=== PATIENT | female | born 1995 | race Caucasian/White ===

== ENCOUNTER 2017-04-27 12:35 | Emergency (ER) | payer OTHER ==
[~2017-04-27] VITALS: Ht 162.6 cm; Wt 74.8 kg
[~2017-04-27 12:35] MED LIST: FLEXERIL10 MG PO; TRAMADOL50 MG PO
--- NOTE | 2017-04-27 14:01 | ED GENERAL ADULT ---
History of Present Illness General Chief Complaint: Abdominal Pain/Flank Pain Stated Complaint: PT IS HERE FOR ABDOMINAL Source: patient, family Exam Limitations: no limitations Vital Signs & Intake/Output Vital Signs & Intake/Output Vital Signs Date Time Temp Pulse Resp B/P B/P Pulse O2 O2 Flow FiO2 Mean Ox Delivery Rate 04/27 1617 98.3 70 17 116/60 98 Room Air Room Air 04/27 1446 Room Air 04/27 1238 98.1 94 18 124/61 98 Room Air Allergies Uncoded Allergies: LEAVES (SNEEZE 01/29/15) Reconcile Medications No Known Home Medications Triage Note: 22 Y/O FEMALE C/O DIFFUSE ABDOMINAL PAIN X 6 WEEKS STATES PAIN HAS BECOME MORE CONSTANT SINCE YESTERDAY AND STATES ABDOMEN IS "TWICE ITS NORMAL SIZE". PT REPORTS INTERMITTENT NAUSEA, DENIES VOMITING. DENIES CHANGES IN APPETITE. LAST BM YESTERDAY AND "NORMAL" PER PT. STATES SHE HAS MENSES RIGHT NOW, "IT WAS 2 WEEKS LATE BUT NOW ITS NORMAL". URINE SAMPLE REQUESTED. AFEBRILE Triage Nurses Notes Reviewed? yes Onset: Abrupt Duration: week(s): Timing: recent history Severity: severe No Modifying Factors: none : No Patient currently breastfeeds: No HPI: 22-year-old female presents to emergency department complaining of lower abdominal pain. Patient states that pain started 6 weeks ago and has been intermittent and cramping in nature without radiation. Patient also notes significant swelling to her abdomen that "happened overnight", she did not know if she has had any change in weight. 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 Pain is not associated with eating. Pain occurs for a few hours at a time and is described as severe, and then dissipates. She took Excedrin for her pain last night with no relief of her symptoms. She also has urinary frequency. She denies fevers, chills, changes in bowel movements, diarrhea, constipation, hematochezia, chest pain, dyspnea, changes in diet, vaginal discharge or dysuria , hematuria. She has a history of ruptured appendix in 2009. (MIREYA CHRISTIANSON) Past History Travel History Traveled to [place] past 21 day No Medical History Any Pertinent Medical History? see below for history Neurological: NONE EENT: NONE Cardiovascular: NONE Respiratory: asthma Gastrointestinal: ruptured appendix Hepatic: NONE Renal: NONE Musculoskeletal: NONE Psychiatric: anxiety Endocrine: NONE Blood Disorders: NONE Cancer(s): NONE SEMAPHORE OPERATOR/Reproductive: NONE Surgical History Surgical History: appendectomy, L ELBOW SURGERY Psychosocial History Who do you live with Friend What is your primary language Austrian Tobacco Use: Never used Family History Hx Contributory? No (MIREYA CHRISTIANSON) Review of Systems Review of Systems Constitutional: Reports: see HPI. EENTM: Reports: no symptoms. Respiratory: Reports: no symptoms. Cardiovascular: Reports: no symptoms. GI: Reports: see HPI. Genitourinary: Reports: see HPI. Musculoskeletal: Reports: no symptoms. Skin: Reports: no symptoms. Neurological/Psychological: Reports: no symptoms. Hematologic/Endocrine: Reports: no symptoms. Immunologic/Allergic: Reports: no symptoms. All Other Systems: Reviewed and Negative (MIREYA CHRISTIANSON) Physical Exam Physical Exam General Appearance: well developed/nourished, no apparent distress, alert, awake Head: atraumatic, normal appearance Eyes: Bilateral: normal appearance, EOMI. Ears, Nose, Throat: hearing grossly normal Neck: normal inspection, supple Respiratory: normal breath sounds, no respiratory distress, quiet respiration Cardiovascular: regular rate/rhythm Gastrointestinal: normal bowel sounds, soft, no organomegaly, tenderness in RLQ and LLQ, suprapubic tenderness Back: normal inspection, normal range of motion, no CVA tenderness Extremities: normal inspection, normal range of motion Neurologic/Psych: awake, alert, oriented x 3 Skin: intact, normal color, warm/dry Core Measures ACS in differential dx? No CVA/TIA Diagnosis: No Severe Sepsis Present: No Septic Shock Present: No (MIREYA CHRISTIANSON) Progress Differential Diagnoses I considered the following diagnoses in my evaluation of the patient: [ diverticulitis, diverticulosis, PID, endometriosis, intussauception, SBO, cholecystitis] Plan of Care: Orders Procedure Date/time Status COMPREHENSIVE METABOLIC PANEL 04/27 1351 Complete CBC WITHOUT DIFFERENTIAL 04/27 1351 Complete URINE 04/27 1241 Complete URINALYSIS 04/27 1241 Complete Laboratory Tests 04/27/17 1406: Urine Color STRAW, Urine Clarity CLEAR, Urine pH 6.5, Ur Specific Custer <= 1.005, Urine Protein NEG, Urine Ketones NEG, Urine Nitrite NEG, Urine Bilirubin NEG, Urine Urobilinogen 0.2, Ur Leukocyte Esterase NEG, Ur Microscopic SEDIMENT EXAMINED, Micro UA Comment NEGATIVE MICROSCOPIC, Urine Hemoglobin SMALL H, Urine Glucose NEG, Urine Test NEGATIVE 04/27/17 1403: Anion Gap 8, Estimated GFR > 60, BUN/Creatinine Ratio 11.4, Glucose 85, Calcium 9.5, Total Bilirubin 0.4, AST 17, ALT 30, Alkaline Phosphatase 59, Total Protein 7.2, Albumin 4.2, Globulin 3.0, Albumin/Globulin Ratio 1.4, CBC w Diff NO MAN DIFF REQ, RBC 4.49, MCV 85.3, MCH 28.4, RDW 12.6, MPV 8.0, Gran % 59.5, Lymphocytes % 31.7, Monocytes % 6.4, Eosinophils % 2.3, Basophils % 0.1, Absolute Granulocytes 3.6, Absolute Lymphocytes 1.9, Absolute Monocytes 0.4, Absolute Eosinophils 0.1, Absolute Basophils 0, PUBS MCHC 33.3 Patient is sitting comfortably in stretcher, she is in no acute distress. Her vital signs have remained stable for the duration of the visit. She is non toxic appearing. Her blood work and imaging was discussed with her extensively. CT shows some indistinct tissues in the region of the right adnexa abutting the uterus and dome of the urinary bladder. Possibly endometriosis vs ovarian cysts. Patient was given a copy of her CT and told to follow up with her OBGYN for further work up. She was also given GI referral for addition work up. She is in agreement with the plan of care. She will follow up here with any worsening symptoms or concerns. case discssed with dr amador. (OLE MENDEZ,MIREYA) Diagnostic Imaging: Viewed by Me: Radiology Read. Discussed w/RAD: Radiology Read. Radiology Impression: PATIENT: SOILA HOANG PRESENT AGE: 22 PATIENT ACCOUNT NO: [id number] : 97 LOCATION: [facility] ORDERING PHYSICIAN: MIREYA MENDEZ SERVICE DATE: 04/27/17-8041 EXAM TYPE : CAT - CT ABD & PELVIS W IV CONTRAST EXAMINATION: CT ABDOMEN AND PELVIS WITH CONTRAST CLINICAL INFORMATION: 22-year-old female patient presenting with crampy abdominal pain in the lower abdomen for the past 6 weeks. COMPARISON: CT of the abdomen pelvis dated 04/14/2012. TECHNIQUE: Multidetector volumetric imaging was performed of the abdomen and pelvis before and after the IV administration of 95 mL of Optiray 320 intravenous contrast. Sagittal and coronal reformatted images were obtained on the technologist's workstation. DLP: 32.3 mGy-cm FINDINGS: LOWER CHEST: The visualized lung bases are unremarkable. There is no evidence of a pleural or pericardial effusion. LIVER, GALLBLADDER, AND BILIARY TREE: The liver is normal in size, shape, and attenuation. No focal hepatic lesion or biliary ductal dilatation is present. The gallbladder is unremarkable with no evidence of radiopaque gallstones, gallbladder wall thickening, or obvious pericholecystic inflammatory changes. The hepatic veins and portal veins are patent. PANCREAS: No pancreatic mass, ductal ectasia, inflammatory changes are seen. SPLEEN: The spleen is not enlarged. ADRENAL GLANDS: The adrenal glands are normal in configuration bilaterally. KIDNEYS AND URETERS: The kidneys are normal in size, shape, and attenuation. No hydronephrosis, hydroureter, or calculi seen. No perinephric stranding. GASTROINTESTINAL TRACT: The large and small bowel are normal in caliber and distribution. There is no evidence of significant diverticular disease. The cecum and terminal ileum are well visualized and normal in appearance. The appendix is not identified. There is again suggestion of a ill-defined inflammatory process involving the right adnexa abutting the uterus and dome of the urinary bladder. ABDOMINAL WALL: No significant hernia is appreciated. LYMPH NODES: There is no evidence of mesenteric, retroperitoneal, pelvic, or inguinal adenopathy. VASCULAR: The dominant aorta and iliac arteries are patent and normal caliber. The iliac veins and IVC are patent. PELVIC VISCERA: A tampon is noted in the vagina. The uterus is retroflexed but otherwise normal in appearance. There appears to be some ill- defined cystic structures within the right ovary. OSSEOUS STRUCTURES: The spine is normal in appearance. No suspicious focal osteolytic or osteoblastic changes are appreciated. IMPRESSION: There is again, some indistinct tissues in the region of the right adnexa abutting the uterus and dome of the urinary bladder with possible mild inflammatory changes. These are similar in appearance compared to the CT scan performed April,. There may be multiple cysts in the right ovary some of which may have recently ruptured. The appendix has not been visualized on either CT study but the cecum and terminal ileum are normal in appearance. Clinical correlation is recommended. If indicated, these findings could be evaluated further with pelvic ultrasound. DICTATED BY: VIVIANA TOLLIVER MD DATE/TIME DICTATED:04/27/171507 GROUP THERAPY COUNSELOR:BOBBY DATE/TIME TRANSCRIBED:04/27/171507 CONFIDENTIAL, DO NOT COPY WITHOUT APPROPRIATE AUTHORIZATION. Initial ED EKG: none (MIREYA CHRISTIANSON) Departure Departure Disposition: HOME OR SELF CARE Condition: Stable Clinical Impression Primary Impression: Abdominal pain Referrals: MADELYN DIAZ,HAY MERRITT MD,JENNIFER Ge (PCP/Family) Additional Instructions: Take Tylenol or Motrin as prescribed as needed for pain. Follow up with your OBGYN for further evaluation of possible endometriosis or ovarian cysts. Follow up with GI, Dr. Galicia, call to make an appointment. Return with any worsening symptoms or concerns. Please go over all results of today's visit with your primary care doctor. Contact your primary care doctor to let them know you were here in the emergency room. There may be nonspecific findings which may not be related to your visit today here in the emergency room but may require further evaluation and chronic monitoring by your primary care doctor. If you had a laceration today the chance of foreign body always remains. You should follow-up with your primary care doctor for recheck in 3-5 days for a wound check. If you had an x-ray done there is a chance that a fracture could have been missed on initial read and you should follow-up with your primary care doctor for repeat x-rays if symptoms persist. If your blood pressure was elevated here in the emergency room please have rechecked by her primary care doctor within the next 48 hours by your primary care doctor. If you were prescribed a narcotic here in the emergency room or any type of controlled substances you're not allowed to drive while taking this medication or operate any type of heavy machinery. Narcotics can make you feel lightheaded dizziness nausea and can cause constipation. You may need to bead picker a stool softener. Thank you for choosing [facility] emergency room. Please return to the emergency room immediately if you have any other concerns worsening of symptoms. Departure Forms: Customer Survey General Discharge Information Prescriptions: Current Visit Scripts No Known Home Medications Comments Note written by Melida Latif PA-C under my direct supervision. (MIREYA CHRISTIANSON) PA/SAND TEMPERER Co-Sign Statement Statement: ED Attending supervision documentation- [] I saw and evaluated the patient. I have also reviewed all the pertinent lab results and diagnostic results. I agree with the findings and the plan of care as documented in the PA's/SAND TEMPERER's documentation. [X] I have reviewed the ED Record and agree with the PA's/SAND TEMPERER's documentation. [] Additions or exceptions (if any) to the PAs/SAND TEMPERER's note and plan are summarized below: [] (OBDULIA DIAZ,JASON) Critical Care Note Critical Care Note Critical Care Time: non-applicable (MIREYA CHRISTIANSON)
[2017-04-27 14:08] LABS: ABSOLUTE BASOPHIL COUNT 0 /CUMM (0.0-0.2); ABSOLUTE EOSINOPHIL COUNT 0.1 /CUMM (0.0-0.7); ABSOLUTE GRANULOCYTE CT 3.6 /CUMM (1.4-6.5); ABSOLUTE LYMPH COUNT 1.9 /CUMM (1.2-3.4); ABSOLUTE MONOCYTE COUNT 0.4 /CUMM (0.10-0.60); BASOPHIL % 0.1 % (0.0-2.0); EOSINOPHIL % 2.3 % (0-5); GRANULOCYTE % 59.5 % (42.2-75.2); HEMATOCRIT 38.3 % (37-47); MEAN CORPUSCULAR HGB 28.4 PG (27.0-31.0); MEAN CORPUSCULAR HGB CONC 33.3 G/DL (33.0-37.0); MEAN CORPUSCULAR VOLUME 85.3 FL (81.0-99.0); PLATELET COUNT 321 /CUMM (130-400); RBC DISTRIBUTION WIDTH 12.6 % (11.5-14.5); RED BLOOD CELL CT 4.49 /CUMM (4.20-5.40); WHITE BLOOD CELL COUNT 6.1 /CUMM (4.8-10.8)
--- NOTE | 2017-04-27 15:28 | CT SCAN REPORT ---
EXAMINATION: CT ABDOMEN AND PELVIS WITH CONTRAST CLINICAL INFORMATION: 22-year-old female patient presenting with crampy abdominal pain in the lower abdomen for the past 6 weeks. COMPARISON: CT of the abdomen pelvis dated 04/14/2012. TECHNIQUE: Multidetector volumetric imaging was performed of the abdomen and pelvis before and after the IV administration of 95 mL of Optiray 320 intravenous contrast. Sagittal and coronal reformatted images were obtained on the technologist's workstation. DLP: 32.3 mGy-cm FINDINGS: LOWER CHEST: The visualized lung bases are unremarkable. There is no evidence of a pleural or pericardial effusion. LIVER, GALLBLADDER, AND BILIARY TREE: The liver is normal in size, shape, and attenuation. No focal hepatic lesion or biliary ductal dilatation is present. The gallbladder is unremarkable with no evidence of radiopaque gallstones, gallbladder wall thickening, or obvious pericholecystic inflammatory changes. The hepatic veins and portal veins are patent. PANCREAS: No pancreatic mass, ductal ectasia, inflammatory changes are seen. SPLEEN: The spleen is not enlarged. ADRENAL GLANDS: The adrenal glands are normal in configuration bilaterally. KIDNEYS AND URETERS: The kidneys are normal in size, shape, and attenuation. No hydronephrosis, hydroureter, or calculi seen. No perinephric stranding. GASTROINTESTINAL TRACT: The large and small bowel are normal in caliber and distribution. There is no evidence of significant diverticular disease. The cecum and terminal ileum are well visualized and normal in appearance. The appendix is not identified. There is again suggestion of a ill-defined inflammatory process involving the right adnexa abutting the uterus and dome of the urinary bladder. ABDOMINAL WALL: No significant hernia is appreciated. LYMPH NODES: There is no evidence of mesenteric, retroperitoneal, pelvic, or inguinal adenopathy. VASCULAR: The dominant aorta and iliac arteries are patent and normal caliber. The iliac veins and IVC are patent. PELVIC VISCERA: A tampon is noted in the vagina. The uterus is retroflexed but otherwise normal in appearance. There appears to be some ill-defined cystic structures within the right ovary. OSSEOUS STRUCTURES: The spine is normal in appearance. No suspicious focal osteolytic or osteoblastic changes are appreciated. IMPRESSION: There is again, some indistinct tissues in the region of the right adnexa abutting the uterus and dome of the urinary bladder with possible mild inflammatory changes. These are similar in appearance compared to the CT scan performed April,. There may be multiple cysts in the right ovary some of which may have recently ruptured. The appendix has not been visualized on either CT study but the cecum and terminal ileum are normal in appearance. Clinical correlation is recommended. If indicated, these findings could be evaluated further with pelvic ultrasound.
[2017-04-27 16:17] VITALS: BP 116/60
== END 2017-04-27 16:18 ==
LOC: ERH 12:35
PROVIDERS: Physician Assistant Medical
DX: R10.31 Right lower quadrant pain (principal); R10.32 Left lower quadrant pain; R10.2 Pelvic and perineal pain
CPT/HCPCS: 74177; 81001; 81025